=== PATIENT | female | born 1980 | race Caucasian/White ===

== ENCOUNTER 2016-06-29 12:11 | Day surgery (SDC) | payer OTHER ==
[2016-06-28 12:48] VITALS: BMI 41.6
[2016-06-29] VITALS (8 sets, daily range): BP systolic 115–128; BP diastolic 59–70; PULSE 69–100; RESP 18–76; Ht 162.6 cm; Wt 113.0 kg
[~2016-06-29] VITALS: Ht 162.6 cm; Wt 113.0 kg
[~2016-06-29 12:11] MED LIST: DEXAMETHASONE 10 MG/ML 1 ML INJ IV SCH; PT TAKES NO MEDS
[2016-06-29] MEDS ORDERED: DEXAMETHASONE 4 MG/ML 1 ML INJ IV SCH (15:00)
[2016-06-29] MEDS ORDERED: PROPOFOL 20 ML ONE (15:31)
[2016-06-29] MEDS ORDERED: MIDAZOLAM 1 MG/ML 2 ML INJ ONE (15:31)
[2016-06-29] MEDS ORDERED: ROCURONIUM 50 MG INJ ONE (15:31)
[2016-06-29] MEDS ORDERED: SUCCINYLCHOLINE CHLORIDE 100 MG/5 ML SYG IV ONE (15:31)
[2016-06-29] MEDS ORDERED: FENTAnyl 50 MCG/ML VIAL ONE (15:32)
[2016-06-29] MEDS ORDERED: DEXAMETHASONE 4 MG/ML 1 ML INJ ONE (15:40)
[2016-06-29] MEDS ORDERED: GLYCOPYRROLATE 0.4 MG INJ ONE (15:40)
[2016-06-29] MEDS ORDERED: KETOROLAC 30 MG INJ ONE (15:40)
[2016-06-29] MEDS ORDERED: METOCLOPRAMIDE 10 MG INJ ONE (15:40)
[2016-06-29] MEDS ORDERED: CEFAZOLIN 1 GM INJ ONE (15:40)
[2016-06-29] MEDS ORDERED: ONDANSETRON 4 MG INJ ONE (15:40)
[2016-06-29] MEDS ORDERED: NEOSTIGMINE 3 MG/3 ML SYRINGE ONE (15:40)
[2016-06-29] MEDS ORDERED: ONDANSETRON 4 MG INJ IV PRN (16:00)
[2016-06-29] MEDS ORDERED: morphine (1 MG/ML) 10ML SYRINGE IV PRN ×3 (16:00)
[2016-06-29] MEDS ORDERED: EPHEDrine SULFATE 50 MG/5 ML SYG IV PRN (16:00)
[2016-06-29] MEDS ORDERED: HYDROmorphONE (0.2 MG/ML) 10ML SYG IV PRN ×3 (16:00)
[2016-06-29] MEDS ORDERED: DIPHENHYDRAMINE 50 MG INJ IV PRN (16:00)
[2016-06-29] MEDS ORDERED: METOCLOPRAMIDE 10 MG INJ IV PRN (16:00)
[2016-06-29] MEDS ORDERED: FENTAnyl 50 MCG/ML VIAL IV PRN ×3 (16:00)
[2016-06-29] MEDS: MEPERIDINE 25 MG INJ IV PRN ×2 (16:13→16:39)
--- NOTE | 2016-06-29 16:20 | HPN ---
Date/Time of Note Date/Time of Note DATE: 06/29/16 TIME: 16:20 Interval H&P Admission Note Pt. seen H&P reviewed: No system changes MANDI DEWEY MD June 29, 2016 16:20
--- NOTE | 2016-06-29 16:22 | OPR ---
Date/Time of Note Date/Time of Note DATE: 06/29/16 TIME: 16:20 Operative Report Procedure Date: June 29, 2016 Preoperative Diagnosis Chronic tonsillitis Postoperative Diagnosis Same Operation Performed Tonsillectomy Surgeon: MANDI DEWEY MD Anesthesia: general Estimated Blood Loss: 0 - 10 ml's Specimens Tonsils Complications: None Pt Condition Post Procedure: stable Disposition: PACU Indications Recurrent infection Operative\Procedure Findings Symmetric Procedure Description Description of procedure: The patient was identified in the holding area. We had a discussion to confirm understanding of all indications risks benefits alternatives and postoperative care associated with the operation. The patient signed informed consent was taken to the operating room. The patient was laid supine on the operating room table and general anesthesia was achieved without difficulty. The face was draped in sterile fashion. A McIvor mouth gag was placed and used to retract the oral cavity open, taking care to avoid damage to the teeth. The oral cavity and pharynx were inspected and palpated to reveal symmetric tonsils. At this point the right palatine tonsil was grabbed superiorly with a curved Jelena clamp. It was retracted medially and monopolar cautery was used to enter the peritonsillar space. Dissection of the tonsil commenced in a superior to inferior fashion until it was completely resected. Suction Bovie cautery was used for spot hemostasis. At this point, the contralateral tonsil was removed in the exact similar fashion. There was no significant bleeding or oozing. Copious irrigation and suctioning was performed. Secondary inspection revealed no bleeding or oozing. The patient was awakened, extubated and taken to the PACU in stable condition. Complications: None MANDI DEWEY MD June 29, 2016 16:22
[2016-06-29] MEDS ORDERED: HYDROCODONE/APAP (5/325) TAB PO PRN ×2 (16:30→17:30)
== END 2016-06-29 17:37 | disposition home or self-care (01) ==
LOC: SDS 12:11
PROVIDERS: ATTEND Otolaryngology
DX: J35.01 Chronic tonsillitis (principal)
CPT/HCPCS: 42826; 88304; J0690; J1100; J1885; J2175; J2250; J2405; J2710; J2765; J3010; J7999; Z7512; Z7610

== ENCOUNTER 2016-07-02 08:15 | Emergency (ER) | payer OTHER ==
[~2016-07-02] VITALS: Wt 111.0 kg
[2016-07-02] MEDS ORDERED: KETOROLAC 30 MG INJ IV STA (08:40)
[2016-07-02] MEDS ORDERED: DEXAMETHASONE 10 MG/ML 1 ML INJ IV ONE (09:00)
[2016-07-02] MEDS ORDERED: LIDOCAINE 2% VISC 15 ML CUP PO ONE (09:00)
[2016-07-02] MEDS ORDERED: SOD CHLORIDE 0.9% 1,000 ML IV ONE (09:00)
[2016-07-02] MEDS ORDERED: LIDO20SO19 MM (10:25)
[2016-07-02] MEDS ORDERED: IBUP-1542 PO (10:25)
[2016-07-02 11:33] VITALS: BP 149/72; PULSE 80; RESP 18; TEMP 98.3
--- NOTE | 2016-07-04 21:03 | ERD ---
ER Documentation Chief Complaint Date/Time DATE: 07/04/16 Chief Complaint Throat pain HPI The patient is a 35-year-old female who presents to the Emergency Department with complaint of throat pain s/p tonsillectomy. The patient reports that on 06/29/2016, three days prior to the patient's current visit, she had a tonsillectomy performed by Dr. Mandi Gallagher. She reports persistent pain s/p the procedure, which is worsened upon eating. However, she denies any difficulty tolerating solids or liquids. Denies change in phonation, excessive drooling or difficulty tolerating her oral secretions. Denies difficulty opening or closing her mouth. Denies fevers, sweats, chills, nausea or vomiting. Denies facial or neck pain, swelling or redness. The patient called Dr. Gallagher's office regarding her symptoms, and was advised to present to the Emergency Department for symptomatic control. No other complaints at this time. ROS All systems reviewed and are negative except as per history of present illness. Medications Home Meds Active Scripts Ibuprofen* (Motrin*) 600 Mg Tab, 600 MG PO Q6, #30 TAB Prov:WINIFRED BROWNE PA-C 07/02/16 Lidocaine (Lidocaine Viscous) 100 Ml Soln, 10 ML MM TID, #100 ML Prov:WINIFRED BROWNE PA-C 07/02/16 Discontinued Reported Medications [Pt Takes No Meds] No Conflict Check 01/07/11 Allergies Allergies: Coded Allergies: No Known Drug Allergies (Verified Allergy, Unknown, 06/29/16) PMhx/Soc History of Surgery: Yes (OVARY/CYST REMOVED, KIDNEY STONES REMOVED) Anesthesia Reaction: No Hx Neurological Disorder: No Hx Respiratory Disorders: No Hx Cardiac Disorders: No Hx Psychiatric Problems: No Hx Miscellaneous Medical Probl: No Hx Alcohol Use: Yes (SOCIALY) Hx Substance Use: No Hx Tobacco Use: No Physical Exam Vitals Vital Signs Date Time Temp Pulse Resp B/P Pulse Ox O2 Delivery O2 Flow Rate FiO2 07/02/16 11:33 98.3 80 18 149/72 98 Room Air 07/02/16 08:19 97.4 75 18 127/74 98 Physical Exam GENERAL: Well-developed, well-nourished, in no acute distress HEENT: Head is normocephalic, atraumatic. No scleral pallor or icterus. Pupils equal, round and reactive to light. Extraocular movements intact. Conjunctiva pink. Bilaterally tympanic membranes are clear with no evidence of erythema, effusion or dulling of the light reflex. Moist mucous membranes. Clear oropharynx. Bilateral peritonsillar areas s/p recent electrocautery. No bleeding. No oozing. No purulence/exudates. Uvula is midline. No trismus, stridor or excessive drooling. No pooling of oral secretions. No submandibular swelling. No brawny induration. Phonation is normal. No brawny induration. NECK: Supple. No tenderness. No lymphadenopathy. Trachea midline. No nuchal rigidity. Full range of motion. RESPIRATORY: Lungs are clear to auscultation bilaterally. No rales, rhonchi or wheezing. Equal breath sounds. Normal expiratory effort. CARDIOVASCULAR: Regular rate and rhythm. S1 and S2 normal. No murmurs, rubs, or gallops. GASTROINTESTINAL: Abdomen is soft, nontender, and nondistended. No guarding, no rebound tenderness. Normal bowel sounds. EXTREMITIES: No clubbing, cyanosis, or edema. Normal skin perfusion. Moving all extremities. No focal swelling or erythema. NEUROLOGIC: The patient is alert, awake, and oriented. Nonfocal exam. INTEGUMENT: Skin is clean, dry and intact. No rashes, lesions or petechiae present. Normal turgor. PSYCHIATRIC: Appropriate; Cooperative. Results 24 hrs Current Medications Medications (Trade) Dose Ordered Sig/Tika Route PRN Reason Start Time Stop Time Status Last Admin Dose Admin Sodium Chloride (NS) 1,000 ml @ 1,000 mls/hr Q1H ONCE IV 07/02/16 09:00 07/02/16 09:59 DC 07/02/16 09:11 Ketorolac Tromethamine (Toradol) 30 mg ONCE STAT IV 07/02/16 08:40 07/02/16 08:43 DC 07/02/16 09:11 Dexamethasone (Decadron) 10 mg ONCE ONCE IV 07/02/16 09:00 07/02/16 09:01 DC 07/02/16 09:11 Lidocaine (Xylocaine (Viscous)) 15 ml ONCE ONCE PO 07/02/16 09:00 07/02/16 09:01 DC 07/02/16 09:11 Procedures/MDM This is a 35-year-old female presenting to the Emergency Department complaining of throat pain s/p recent tonsillectomy. She is non-toxic appearing and exhibits no meningeal signs. She had no significant abnormalities noted on physical examination (other than the appropriate post-surgical findings), with no evidence of major bleeding/hemorrhage, pulmonary complications, postoperative tonsillar bd infection, uvular edema, tongue numbness, dental trauma, TMJ dislocation, eustachian tube dysfunction, otitis media/externa, candidiasis, Young's angina, airway compromise, or any other emergent medical condition. After rest and administration of Toradol, Fluids and Decadron, the patient reports no new complaints, and significantly decreased pain. At this time the patient is in stable condition and therefore she can be discharged home with strict return precautions for signs of deteriorating or worsening condition. She is advised to follow-up with her ENT specialist, Dr. Gallagher, for reevaluation and further management within the next 1-2 days, or return to the ER sooner for any new or worsening symptoms. I shared my medical decision making and plan with the patient at length and in great detail, and she verbally understands and agrees with the plan for further observation and care as an outpatient. At the time of discharge, all questions were answered. Departure Diagnosis: Primary Impression: Post-tonsillectomy pain Condition: Stable Patient Instructions: Adult Tonsillectomy, Tonsillectomy/Adenoidectomy Referrals: MANDI GALLAGHER MD Additional Instructions: Call your doctor TOMORROW for an appointment during the next 1-2 days.See the doctor sooner or return here if your condition worsens before your appointment time. WINIFRED BROWNE PA-C July 04, 2016 21:03
== END 2016-07-02 11:43 | disposition home or self-care (01) ==
LOC: FTE 08:15
DX: G89.18 Other acute postprocedural pain (principal)
CPT/HCPCS: J1100; J1885; J7030; Z7610; 96361; 96374; 96375

== ENCOUNTER 2018-11-24 16:29 | Outpatient (CLI) | payer OTHER ==
[~2018-11-24] VITALS: Ht 162.6 cm; Wt 117.2 kg
[~2018-11-24 16:29] MED LIST changes: -DEXAMETHASONE 10 MG/ML 1 ML INJ IV SCH; +FERR134T PO; +IBUP-1542 PO; +LIDO20SO19 MM; +NIFE10CA PO; +PREN-19 PO; -PT TAKES NO MEDS
[2018-11-24 16:47] VITALS: Ht 162.6 cm; Wt 117.2 kg
[2018-11-24] MEDS ORDERED: TERBUTALINE 1 MG/ML INJ SC ONE (17:30)
[2018-11-24] MEDS ORDERED: LACTATED RINGER'S 1,000 ML IV ONE (19:00)
[2018-11-24] MEDS ORDERED: LACTATED RINGER'S 1,000 ML IV SCH (19:00)
[2018-11-24] MEDS ORDERED: NIFEdipine 10 MG CAP PO ONE (21:00)
[2018-11-24] MEDS ORDERED: BETAMET NA PHOS/AC (6 MG/ML) 2 ML INJ SYG IM ONE (21:00)
== END 2018-11-24 21:51 | disposition home or self-care (01) ==
LOC: OBT 16:29 → L-D 16:31 → OBT 21:51
PROVIDERS: ATTEND Specialist
DX: O60.03 Preterm labor without delivery, third trimester (principal); Z3A.32 32 weeks gestation of pregnancy
CPT/HCPCS: 36415; 76817; 81001; 82731; 87086; 96360; 96361; 96372; J0702; J3105; J7120; Z7500; Z7610; G0463